=== PATIENT | female | born 1970 | race Hispanic/Latino ===

== ENCOUNTER → 2025-04-27 | Outpatient (CLI) | payer OTHER ==
--- NOTE | 2025-04-28 11:36 | HMCIMG ---
EXAM: CR right Hand, 2 views. CLINICAL HISTORY: Fibromyalgia. COMPARISON: None provided. FINDINGS: No acute fracture or aggressive appearing osseous lesion. Minor degenerative changes in the first carpometacarpal, metacarpophalangeal and interphalangeal joints of the first digit. Remainder of the joint spaces appear grossly unremarkable. The soft tissues are unremarkable. IMPRESSION: No acute osseous abnormality. No abnormal soft tissue. Minor degenerative changes in the first carpometacarpal, metacarpophalangeal and interphalangeal joints of the first digit. /[place]
== END | disposition home or self-care (01) ==
LOC: RAH 15:36
PROVIDERS: ATTEND Internal Medicine
DX: M18.11 Unilateral primary osteoarthritis of first carpometacarpal joint, right hand (principal); M19.041 Primary osteoarthritis, right hand; M79.7 Fibromyalgia; M06.9 Rheumatoid arthritis, unspecified
CPT/HCPCS: 73120